=== PATIENT | male | born 1950 | race African-American/Black ===

== ENCOUNTER → 2016-10-07 | Day surgery (SDC) | payer OTHER ==
[~2016-10-07] MED LIST: AMLODIPINE-OLM1 EAC1 PO; LIPITOR40 MG PO
--- NOTE | ~2016-10-07 | OR ---
Unit #: [id number] #: [id number] Patient: RERE RAMESH [id number] [facility]. [address] [place], [place] [address] [id number] O MR#: [id number] NAME: RERE RAMESH ROOM: Date of Procedure: 10/07/2016 Admission Date: 10/07/2016 Surgeon: Brain Hurst Jr., M.D. : 1950 Attending Physician: Brain Hurst Jr., M.D. Primary Care Physician: Primary Care Physician No OPERATIVE REPORT INDICATIONS FOR PROCEDURE The patient is a 65-year-old black male, recently presented to the office complaining of a large mass of the right upper back. This has been there for sometime and enlarging in size and causing discomfort at times, but has never been draining or infected that he knows. PREOPERATIVE DIAGNOSIS Large chronic inflamed cyst of the right upper back. POSTOPERATIVE DIAGNOSIS Large chronic inflamed cyst of the right upper back, noting approximately 6 to 7 cm cyst. ANESTHESIA 1% Xylocaine with epinephrine locally. PROCEDURE PERFORMED Excision of large mass, right upper back. DESCRIPTION OF PROCEDURE The patient was positioned in prone position. After being prepped and draped in routine fashion, he was anesthetized locally in the area of the mass with 1% Xylocaine with epinephrine. An elliptical incision was made around the mass with being totally excised from the surrounding tissue and down to the deeper subcutaneous tissue with a #10 blade scalpel. After it was completely removed from the fascia of the muscle, it was sent to pathology. Hemostasis was achieved with Bovie cautery. The deeper tissue approximated with interrupted 3-0 Vicryl sutures. Skin edges approximated with stainless-steel skin clips and skin stapling device. Sterile dressings were applied externally. Estimated blood loss less than 20 mL. The patient received no fluids during the procedure. Sponges and instruments counts correct x3. No drains used. No complications. The patient was taken to the discharge area with stable vital signs for discharge in satisfactory condition. Dictated by... Brain Hurst Jr., M.D. JMB/leanna Unit #: [id number] #: [id number] Patient: RERE RAMESH TD: 10/08/2016 03:26 JOB #: [id number] OPERATIVE REPORT Page 1 of 1 X Brain Hurst MD PROCEDURE OPERATIVE NOTE
== END | disposition home or self-care (01) ==
LOC: CSUR 05:43
DX: L72.3 Sebaceous cyst (principal); F17.210 Nicotine dependence, cigarettes, uncomplicated; Z98.890 Other specified postprocedural states
CPT/HCPCS: 88304